=== PATIENT | male | born 1955 | race Caucasian/White ===

== ENCOUNTER 2024-08-22 08:25 | Outpatient (CLI) | payer MEDICARE, BC | END 2024-08-22 08:26 | disposition home or self-care (01) | LOC: CSHSLEEP 08:25 | PROVIDERS: ATTEND Family Medicine | DX: R53.83 Other fatigue (principal); R09.89 Other specified symptoms and signs involving the circulatory and respiratory systems; R41.9 Unspecified symptoms and signs involving cognitive functions and awareness; R06.83 Snoring; G47.33 Obstructive sleep apnea (adult) (pediatric) | CPT/HCPCS: 95810 ==